=== PATIENT | female | born 1995 | race Caucasian/White ===

== ENCOUNTER 2017-11-17 12:35 | Emergency (ER) | payer OTHER ==
[~2017-11-17] VITALS: Ht 167.6 cm; Wt 89.8 kg
[2017-11-17] MEDS ORDERED: PROGESTERONE200 MG (13:11)
[2017-11-17] MEDS ORDERED: PRENATAL + DHA1 EAC1 (13:12)
[2017-11-18] MEDS ORDERED: ZOFRAN ODT4 MG PO (02:35)
[2017-11-18] MEDS ORDERED: PEPCID40 MG PO (02:35)
== END 2017-11-18 03:26 | disposition home or self-care (01) ==
LOC: ER 12:35
DX: O21.0 Mild hyperemesis gravidarum (principal); Z34.01 Encounter for supervision of normal first pregnancy, first trimester

== ENCOUNTER 2018-04-16 23:54 | Outpatient (CLI) | payer OTHER ==
[~2018-04-16 23:54] MED LIST: PEPCID40 MG PO; PRENATAL + DHA1 EAC1; PROGESTERONE200 MG; ZOFRAN ODT4 MG PO
== END 2018-04-17 23:43 | disposition home or self-care (01) ==
LOC: OBS/DEL 23:54
DX: O26.893 Other specified pregnancy related conditions, third trimester (principal); N23 Unspecified renal colic; Z34.03 Encounter for supervision of normal first pregnancy, third trimester

== ENCOUNTER → 2018-06-12 | Outpatient (CLI) | payer OTHER ==
[~2018-06-12] MED LIST changes: +PRENATABS RX T1 EACH PO
== END | disposition home or self-care (01) ==
LOC: OBS/DEL 18:46
DX: O16.3 Unspecified maternal hypertension, third trimester (principal); Z34.83 Encounter for supervision of other normal pregnancy, third trimester

== ENCOUNTER 2018-06-16 12:31 | Inpatient (IN) | payer OTHER ==
[~2018-06-16] VITALS: Ht 162.6 cm; Wt 3.6 kg
[~2018-06-16 12:31] MED LIST changes: -PRENATABS RX T1 EACH PO
[2018-06-16] MEDS ORDERED: PRENATABS RX T1 EACH PO (13:04)
== END 2018-06-21 16:10 | disposition home or self-care (01) | DRG 766 ==
LOC: O/R 06-18 06:36 → LDR 06-18 09:15 → OB/GYN 06-18 17:35
PROVIDERS: Obstetrics & Gynecology
PROC: 0UB70ZZ Excision of Bilateral Fallopian Tubes, Open Approach (ICD-10-PCS; 2018-06-18)
PROC: 4A1HXCZ Monitoring of Products of Conception, Cardiac Rate, External Approach (ICD-10-PCS; 2018-06-18)
PROC: 10D00Z1 Extraction of Products of Conception, Low, Open Approach (ICD-10-PCS; principal; 2018-06-18 09:15)
DX: O13.3 Gestational [pregnancy-induced] hypertension without significant proteinuria, third trimester (principal); O34.211 Maternal care for low transverse scar from previous cesarean delivery; O75.82 Onset (spontaneous) of labor after 37 completed weeks of gestation but before 39 completed weeks gestation, with delivery by (planned) cesarean section; Z3A.38 38 weeks gestation of pregnancy; Z37.0 Single live birth; Z30.2 Encounter for sterilization

== ENCOUNTER → 2020-06-20 | Emergency (ER) | payer OTHER ==
[~2020-06-20] VITALS: Ht 162.6 cm; Wt 97.5 kg
[~2020-06-20] MED LIST changes: +NIFEREX TABLET1 EACH PO; +PRENATABS RX T1 EACH PO
== END | disposition home or self-care (01) ==
LOC: ER 17:39
DX: R42 Dizziness and giddiness (principal); Z20.828 Contact with and (suspected) exposure to other viral communicable diseases